=== PATIENT | male | born 1940 | race Caucasian/White ===

== ENCOUNTER 2018-09-05 10:15 | Emergency (ER) | payer OTHER ==
[~2018-09-05] VITALS: Ht 172.7 cm; Wt 125.0 kg
[2018-09-05] MEDS ORDERED: SODIUM CHLORIDE 0.9% 1,000ML IVBOLUS ONE (10:30)
[2018-09-05] MEDS ORDERED: SODIUM CHLORIDE FLUSH 10ML SYR IVF ONE (10:30)
[2018-09-05] MEDS ORDERED: GLIP5TAB10 PO (10:34)
[2018-09-05] MEDS ORDERED: METF500T17 PO (10:34)
[2018-09-05] MEDS ORDERED: FINA5TAB4 PO (10:34)
[2018-09-05] MEDS ORDERED: LISI-170 PO (10:34)
[2018-09-05] MEDS ORDERED: ASPI-496 PO (10:34)
[2018-09-05] MEDS ORDERED: NPH,100I4 SQ (10:34)
[2018-09-05 10:46] LABS: BASOPHILS # (AUTO) 0.04 x10^3/uL (0-0.1); BASOPHILS % (AUTO) 1 % (0-1); EOSINOPHILS # (AUTO) 0.08 x10^3/uL (0-0.4); EOSINOPHILS % (AUTO) 1 % (1-7); LYMPHOCYTES # (AUTO) 0.92 x10^3/uL (1-3.4); LYMPHOCYTES % (AUTO) 12 % (22-44); MD NO; MEAN CORPUSCULAR HEMOGLOBIN 29.8 pg (27.5-34.5); MEAN CORPUSCULAR HGB CONC 31.9 g/dL (33.2-36.2); MEAN CORPUSCULAR VOLUME 93.5 fL (81-97); MONOCYTES # (AUTO) 0.54 x10^3/uL (0.2-0.8); MONOCYTES % (AUTO) 7 % (2-9); NEUTROPHILS # (AUTO) 6.34 x10^3/uL (1.8-6.8); NEUTROPHILS % (AUTO) 80 % (42-75); PLATELET COUNT 255 x10^3/uL (130-400); RED BLOOD COUNT 4.73 x10^6/uL (4.38-5.82); RED CELL DISTRIBUTION WIDTH 12.9 % (9.4-14.8)
[2018-09-05 10:52] LABS: ACETONE, SERUM Trace (10mg/dL) mg/dL (Negative)
[2018-09-05 10:55] LABS: ALANINE AMINOTRANSFERASE 37 U/L (12-78); ALBUMIN 3.5 g/dL (3.4-5.0); ANION GAP 8 mmol/L (5-15); CALCIUM 8.4 mg/dL (8.5-10.1); CHLORIDE 105 mmol/L (98-107)
[2018-09-05 10:56] LABS: ALKALINE PHOSPHATASE 37 U/L (45-117); BILIRUBIN,TOTAL 0.4 mg/dL (0.2-1.0); TOTAL PROTEIN 6.5 g/dL (6.4-8.2)
--- NOTE | 2018-09-05 11:17 | NUR ---
Patient X-ray done
--- NOTE | 2018-09-05 12:12 | NUR ---
UPDATED ON PLAN OF CARE AND RECHECK UP
[2018-09-05] MEDS ORDERED: ONDANSETRON ODT 8 MG ONE (12:44)
[2018-09-05 12:48] VITALS: BP 131/65
[2018-09-05] MEDS ORDERED: ONDANSETRON ODT 8 MG PO ONE (13:00)
== END 2018-09-05 13:49 | disposition home or self-care (01) ==
LOC: ED 13:20
DX: R11.2 Nausea with vomiting, unspecified (principal); E11.65 Type 2 diabetes mellitus with hyperglycemia; I10 Essential (primary) hypertension
CPT/HCPCS: 36415; 71045; 80053; 82010; 85025; 96360; 96361; 99284; J7030